=== PATIENT | female | born 1965 | race Caucasian/White ===

== ENCOUNTER 2020-01-30 12:47 | Emergency (ER) | payer BC, SELFPAY ==
--- NOTE | ~2020-01-30 | CT_ITS ---
EXAMINATION: CT brain wo con DATE: 01/30/2020 14:10 INDICATION: Vertigo. Headache. TECHNIQUE: Computed tomography (CT) of the head was performed without intravenous contrast. Sagittal and coronal reconstructions were performed. The mA was adjusted according to patient size. Iterative reconstruction technique was employed. The dose-length product was 605.33 mGy-cm. COMPARISON: None FINDINGS: No acute intracranial hemorrhage, acute infarction or abnormal extra axial fluid collection. Ventricl es are normal and symmetric. No mass/mass effect. Changes of bilateral intraocular lens replacement. The orbits, paranasal sinuses and mastoid air cells are normal. IMPRESSION: 1. Normal brain. No acute intracranial process. Reviewed, dictated and finalized at location A. [facility]
[2020-01-30 12:56] VITALS: BP 142/83; PULSE 88; RESP 18; TEMP 37.2; O2SAT 100
[2020-01-30] MEDS: KETOROLAC 30 MG/ML VIAL (*BKC) IV PUSH (13:39)
[2020-01-30] MEDS: LACTATED RINGERS 1,000 ML 999 ML IV CONT (13:41)
[2020-01-30] MEDS: PROCHLORPERAZINE EDISYLATE 10 MG/2 ML VIAL IV PUSH (13:41)
[2020-01-30 13:47] LABS: Basophils Percent Auto 0.3 % (0.2-1.2); Eosinophils Absolute Auto 0.2 K/mm3 (0-0.3); Eosinophils Percent Auto 2.5 % (0-4.4); Hematocrit 33.7 % (37.0-47.0); Hemoglobin 11.1 g/dL (12.0-15.0); Immature Granulocyte Absolute 0.03 K/mm3 (0.00-0.031); Immature Granulocyte Percent A 0.4 % (0-0.5); Lymphocytes Absolute Auto 3.11 K/mm3 (0.9-3.2); Mean Corpuscular HGB Conc 32.9 g/dl (32-36); Mean Corpuscular Hemoglobin 29.7 pg (26-34); Mean Corpuscular Volume 90.1 fl (80-100); Mean Platelet Volume 10.4 fl (7.4-10.4); Monocytes Absolute Auto 0.6 K/mm3 (0.1-0.6); Monocytes Percent Auto 7.8 % (2.6-8.5); Platelet Count Result 232 k/mm3 (150-375); Red Blood Count 3.74 M/mm3 (4.2-5.4); Red Cell Distribution Width 12.8 % (11.5-14.5)
--- NOTE | 2020-01-30 13:56 | ED.HA ---
HPI - Headache General Chief Complaint: Headache Stated Complaint: MIGRAINE Time Seen by Provider: 01/30/20 13:10 Source: patient Mode of arrival: ambulatory Limitations: no limitations History of Present Illness HPI Narrative: 54-year-old female History of hypertension Presents complaining of a severe migraine headache for over a week Reports the headache is associated with nausea and vertigo but no hearing loss She got steroids and Antivert from her PCP but it has not alleviated her symptoms Also it turns out that the diagnosis of migraine is a new diagnosis first entertained in the office just last week She does not have a fever or neck pain she does not have any other focal neurologic symptoms Related Data Home Medications Medication Instructions Recorded Confirmed amlodipine [Norvasc] 2.5 mg PO DAILY 03/09/19 03/09/19 hydrochlorothiazide 25 mg PO DAILY 03/09/19 03/09/19 losartan 100 mg PO DAILY 03/09/19 03/09/19 meclizine mg 01/30/20 Allergies Allergy/AdvReac Type Severity Reaction Status Date / Time No Known Allergies Allergy Verified 01/30/20 13:00 Review of Systems Constitutional: Constitutional: Denies chills, Denies fatigue, Denies fever(s) and Denies weakness Eyes: Eyes: Denies change in vision and Reports photophobia ENT: Reports vertigo, Reports dizziness and Denies epistaxis Cardiovascular: Cardiovascular: Denies chest pain Respiratory: Respiratory: Denies cough and Denies dyspnea Gastrointestinal: Gastrointestinal: Reports nausea Musculoskeletal: Musculoskeletal: Denies myalgias and Denies arthralgias Neurologic: Reports vertigo, Reports dizziness and Reports headache(s) Endocrine: Endocrine: Denies polydipsia and Denies polyuria Allergic/Immunologic: Allergic/Immunologic: Denies lip swelling and Denies throat swelling PMFSH Social History Social History Gender identity (if verbalized by the patient): Female Exam Const: General: no acute distress and alert Nutritional Appearance: well nourished Orientation/consciousness: patient oriented x3 HENMT: Head: no contusions and no hematomas Ears: TM's normal bilaterally Face and sinus: sinus tenderness Other: Tender temporalis muscles and tender occipital muscles as well Grossly intact hearing acuity Eyes: Pupils: Equal, round and reactive pupils present EOM: EOMs intact bilaterally Other: Sharp discs Neck: Neck: no meningeal signs Other: Supple Resp: Effort & Inspection: normal respiratory effort Auscultation: clear to auscultation bilaterally Cardio: Rate: regular rate Rhythm: regular rhythm Heart sounds: no murmurs Neuro: General: patient oriented x3 and no meningeal signs Speech: normal speech Course Course Emergency Course: oglesby resolved after tx, nothing worrisome on eval Vital Signs Vital signs: Vital Signs Temperature 37.2 C 01/30/20 12:56 Pulse Rate 88 01/30/20 12:56 Respiratory Rate 18 01/30/20 12:56 Blood Pressure 142/83 H 01/30/20 12:56 Pulse Oximetry 100 01/30/20 12:56 Temperature 37.2 C 01/30/20 14:09 Pulse Rate 86 01/30/20 14:44 Respiratory Rate 18 01/30/20 14:44 Blood Pressure 132/76 01/30/20 14:44 Pulse Oximetry 96 01/30/20 14:44 MDM - Headache Lab Data Result diagrams: 01/30/20 13:39 Labs: Lab Results 01/30/20 01/30/20 Range/Units 13:39 13:39 WBC 8.0 (4.5-10.0) K/mm3 RBC 3.74 L (4.2-5.4) M/mm3 Hgb 11.1 L (12.0-15.0) g/dL Hct 33.7 L (37.0-47.0) % MCV 90.1 (80-100) fl MCH 29.7 (26-34) pg MCHC 32.9 (32-36) g/dl RDW 12.8 (11.5-14.5) % Plt Count 232 (150-375) k/mm3 MPV 10.4 (7.4-10.4) fl Immature Gran % (Auto) 0.4 (0-0.5) % Neut % (Auto) 50.0 (45.5-73.1) % Lymph % (Auto) 39.0 (18.3-44.2) % [place] % (Auto) 7.8 (2.6-8.5) % Eos % (Auto) 2.5 (0-4.4) % Baso % (Auto) 0.3 (0.2-1.2) % Lymph # (Auto) 3.11 (0.9-3.2) K/mm3 [place] # (Auto) 0.6 (0.1-0.6) K/mm
[2020-01-30 14:02] LABS: CRP 0.9 mg/dL (<1.0)
[2020-01-30 14:09] VITALS: TEMP 37.2
[2020-01-30 14:21] LABS: Erythrocyte Sedimentation Rate 18 mm/hr (0-20)
[2020-01-30 14:44] VITALS: BP 132/76; PULSE 86; RESP 18; O2SAT 96
[2020-01-30 15:43] VITALS: BP 117/65; PULSE 74; RESP 18; O2SAT 96
== END 2020-01-30 15:44 | disposition home or self-care (01) ==
PROVIDERS: Emergency Provider Emergency Medicine; PCP Family Medicine
DX: R51.9 Headache, unspecified (principal)
CPT/HCPCS: 36415; 70450; 85025; 85652; 86140; 96361; 96374; 96375; 99284; J0780; J1885; J7120

== ENCOUNTER 2021-01-22 16:02 | Outpatient (CLI) | payer BC, SELFPAY ==
[2021-01-22 17:20] LABS: Influenza A QL RT-PCR Negative (Negative); Influenza B QL RT-PCR Negative (Negative); SARS-CoV-2 RNA PCR Negative (Negative)
== END 2021-01-22 16:03 | disposition home or self-care (01) ==
LOC: CHSLAB 16:06
PROVIDERS: PCP Internal Medicine; Visit Provider Nurse Practitioner Family
DX: Z20.822 Contact with and (suspected) exposure to COVID-19 (principal); J06.9 Acute upper respiratory infection, unspecified
CPT/HCPCS: 87502; C9803; U0003; U0005

== ENCOUNTER 2024-12-17 10:14 | Outpatient (CLI) | payer OTHER, SELFPAY ==
[2024-12-17 10:36] LABS: Hematocrit 41.4 % (35.0-49.0); Hemoglobin 13.3 g/dL (12.0-15.0); Mean Corpuscular HGB Conc 32.1 g/dL (32-36); Mean Corpuscular Hemoglobin 30.0 pg (27.0-31.0); Mean Corpuscular Volume 93.5 fL (78.0-102.0); Platelet Count Result 190 K/mm3 (150-420); Red Blood Count 4.43 M/mm3 (4.20-5.40); White Blood Count 5.4 K/mm3 (4.8-10.8)
[2024-12-17 10:42] LABS: Add Urine Microscopic? YES; Glucose Urine UA Negative (Negative); Leukocyte Esterase Ur 3+ (Negative); Nitrate Urine Positive (Negative); Specific Grav Ur 1.015 (1.010-1.020)
[2024-12-17 10:46] LABS: Appearance Urine Cloudy (Clear)
--- OUTSIDE RECORDS SUMMARY | 2024-12-17 10:47 | XMS_ITS | Clinical Summary ---
Author Organization [facility] Address [address] [place] [address] Phone Care Team Providers Care Hr Director Name Role Phone Unavailable Primary Care Provider Unavailabl e Allergies No known active allergies Medications olmesartan (BENICAR) 40 mg Oral tablet Take 40 mg by mouth daily. Active FAMOTIDINE (PEPCID ORAL) Take by mouth Daily LATE. Active aspirin (FRANCOISE) 81 mg Oral Tab Take by mouth. Active hydrochlorothiaz mami 25 mg Oral tablet Take 1 Tab by mouth daily. 30 Tab 2 08/28/2011 Active Active Problems Problem Noted Date Diagnosed Date Fatigue 08/28/2011 Abnormal thyroid blood test 08/28/2011 Snoring 08/28/2011 HTN (hypertension) 08/28/2011 Resolved Problems Problem Noted Date Diagnosed Date Resolved Date Abnormal thyroid blood test 08/28/2011 08/28/2011 Family History Medical History Relation Name Comments Other Father mva Thyroid Disease Mother Other Sister ALLERGIES, SCOL IOSIS Relation Name Status Comments Father Mother Alive Sister Alive Social History Tobacco Use Types Packs/Day Years Used Date Smoking Tobacco: Never Alcohol Use Standard Drinks/Week Comments Yes 0 (1 standard drink = 0.6 oz pur e alcohol) social Comments No Sex and Gender Information Value Date Recorded Sex Assigned at Not on file Legal Sex Female 6:09 AM UNDERLAY STITCHER Gender Identity Not on file Sexual Orientation Not on file Last Filed Vital Signs Vital Sign Reading Time Taken Comments Blood Pressure 160/95 08/28/2011 10:50 AM CDT right arm 120\80 Pulse 78 08/28/2011 10:50 AM CDT Temperature - - Respiratory Rate - - Oxygen Saturation - - Inhaled Oxygen Concentration - - Weight 73.5 kg (162 lb) 08/28/2011 10:5 0 AM CDT Height 171.5 cm (5' 7.5) 08/28/2011 10 :50 AM CDT Body Mass Index 25 08/28/2011 10:50 AM CDT Plan of Treatment Health Maintenance Due Date Last Done Comments DTAP/TDAP/TD VACCINES (1 - Tdap) 1984 HEPATITIS B VACCINES (1 of 3 - 19+ 3-dose series) 07/19 HPV/Cotest (21-29) 1986 CERVICAL CANCER SCREENING 08/15/1995 HPV/Cotest (30-65) 08/15/1995 PAP SMEAR 08/15/1995 BREAST CANCER SCREENING 2005 COLORECTAL SCREENING 2010 Colorectal Cancer Screening 2010 FIT-DNA Q 3 years 2010 FIT/FOBT Q 1 year 2010 Flex Sig/CT Colonography Q 5 years 2010 ZOSTER VACCINE (1 of 2) 08/15/2015 INFLUENZA VACCINE (#1) 2024 12/18/2018 Insurance [facility] BLUE ACCESS/TRUE BLUE PPO
--- OUTSIDE RECORDS SUMMARY | 2024-12-17 10:47 | XMS_ITS | Clinical Summary ---
Author Organization [facility] Address [address] [place] [address] Care Team Providers Care Offshore Diver Name Role Phone Jalen Lincoln MD Primary Care Provider [phone] Allergies No known active allergies Medications losartan (COZAAR) 100 mg tablet TK 1 T PO QD 5 02/25/2018 Active estradiol (ESTRACE) 0.5 mg tablet 01/28/2018 Active hydroCHLOROthiaz mami (HYDRODIURIL) 25 mg tablet 01/27/2018 Active medroxyPROGESTER one (PROVERA) 2.5 mg tablet 01/27/2018 Activ e Active Problems Problem Noted Date Diagnosed Date Breast mass, right 03/04/2018 Abnormal mammogram 04/22/2013 Immunizations Immunization Administration Dates Next Due Influenza, Quadrivalent, Spl it, Preservative Free, Intramuscular 04/30/2016 Surgical History Surgery Date Site/Laterality Comments BREAST BIOPSY 03/19/2018 Right Medical History Medical History Date Comments Hypertension Hypertension Family History Medical History Relation Name Comments Other Father Auto accident; Cause of : Auto accident Breast cancer Father's Sister Lymphoma Maternal Grandfather Other Mother althy; Relation Name Status Comments Father (Age 60) Father's Sister Maternal Grandfather Mother Alive Social History Tobacco Use Types Packs/Day Years Used Date Smoking Tobacco: Never Smokeless Tobacco: Never Alcohol Use Standard Drinks/Week Comments Yes 0 (1 standard drink = 0.6 oz pur e alcohol) Comments Unknown Sex and Gender Information Value Date Recorded Sex Assigned at Not on file Legal Sex Female 2:32 AM PETROPHYSICAL ENGINEER Gender Identity Not on file Sexual Orientation Not on file Obstetrics History Last Filed Vital Signs Vital Sign Reading Time Taken Comments Blood Pressure 137/76 04/30/2016 8:36 AM CDT Pulse 85 04/30/2016 8:36 AM CDT Temperature 36.8 C (98.2 F) 01/23/2016 3:46 PM PETROPHYSICAL ENGINEER Respiratory Rate - - Oxygen Saturation 98% 01/23/2016 3:46 PM PETROPHYSICAL ENGINEER Inhaled Oxygen Concentration - - Weight 70.3 kg (155 lb) 03/04/2018 10:10 AM PETROPHYSICAL ENGINEER Height 170.2 cm (5' 7) 03/04/2018 10:10 AM PETROPHYSICAL ENGINEER Body Mass Index 24.28 03/04/2018 10:10 AM PETROPHYSICAL ENGINEER Plan of Treatment Health Maintenance Due Date Last Done Comments Cervical Cancer Screening 1965 Colon Cancer Screening-Colonoscopy 1965 Depression Screening 1965 Hepatitis C Screening 1965 Hepatitis B Screening 08/15/1983 Regular Well Visit/Exam 18-64 08/15/1983 Influenza Vaccine (#1) 2024 0, 12/18/2018, 11/12/2016, Additional history exists Breast Cancer Screening-Mammogram 06/11/2025 06/11/2024, 04/12/2020 DTaP/Tdap/Td Vaccine (2 - Td or Tdap) 04/22/2029 04/23/2019 Zoster Vaccine Completed 04/16/2018, 02/13/2018 Pneumococcal vaccine <65 Aged Out No longer eligible based on patient's age to complete this topic Procedures Procedure Name Priority Date/Time Associated Diagnosis Comments SCREENING MAMMOGRAM BILATERAL W XOCHITL Schedule Routine, Read Routine (OP Routine) 06/11/2024 8:18 AM CDT Screening mammogram, encounter for from Last 3 Months or Most Recently Relevant to Health Maintenance Results * Screening Mammogram Bilateral W Xochitl (06/11/2024 8:18 AM CDT) Anatomical Region Laterality Modality Breast Bilateral Mammography Narrative 06/14/2024 1:38 PM CDT Mammogram Technique: Bilateral Digital Breast Tomosynthesis, Bilateral C-view 2D Screening mammogram. Views obtained: bilateral craniocaudal and bilateral mediolateral oblique. Computer Aided Detection was performed. Mammogram Findings: The present examination has been compared to prior imaging studies performed at [facility] on 03/04/2018 and 04/12/2020, and at [place], [place] on 02/25/2018. There are scattered areas of fibroglandular density. There is no suspicious abnormality in either breast. Impression: There is no mammographic evidence of malignancy. Annual screening mammography is recommended. OVERALL FINAL ASSESSMENT: BI-RADS CATEGORY 1: Negative. Procedure Note Yoon Solitario MD - 06/14/2024 Mammogram Technique: Bilateral Digital Breast Tomosynthesis, Bilateral C-view 2D Screening mammogram. Views obtained: bilateral craniocaudal and bilateral mediolateral oblique. Computer Aided Detection was performed. Mammogram Findings: The present examination has been compared to prior imaging studies performed at [facility] on 03/04/2018 and 04/12/2020, and at [place], [place] on 02/25/2018. There are scattered areas of fibroglandular density. There is no suspicious abnormality in either breast. Impression: There is no mammographic evidence of malignancy. Annual screening mammography is recommended. OVERALL FINAL ASSESSMENT: BI-RADS CATEGORY 1: Negative. us Self Screening Mammogram IMG MAMMO PROCEDURES Fi nal Result from Last 3 Months or Most Recently Relevant to Health Maintenance Insurance [employer] [facility] HMO [employer] [facility] [place] HMO Care Teams Offshore Diver Relationship Specialty Start Date End Date Jalen Lincoln MD PCP - General 04/12/20
--- OUTSIDE RECORDS SUMMARY | 2024-12-17 10:47 | XMS_ITS | Clinical Summary ---
Author Organization [facility] Address [address] [place] [address] Care Team Providers Care Pot Fireman Name Role Phone Unavailable Primary Care Provider Unavailabl e Social History Tobacco Use Types Packs/Day Years Used Date Smoking Tobacco: Never Assessed Comments Unknown Sex and Gender Information Value Date Recorded Sex Assigned at Not on file Legal Sex Female 12:51 PM DIRECTOR CPG Gender Identity Not on file Sexual Orientation Not on file Plan of Treatment Health Maintenance Due Date Last Done Comments Hepatitis C Virus (HCV) Screening 1965 TdaP Immunization 1965 Hepatitis B Immunization (1 of 3 - 19+ 3-dose series) 1984 Pap Smear 1986 Cervical Cancer Screening (CCS) 08/15/1995 HPV/Cotest 08/15/1995 Cologuard 2010 Colonoscopy 2010 Colorectal Cancer Screening 2010 Immunochemical Fecal Occult Blood 2010 Pneumococcal Immunization (50+ years) (1 of 1 - PCV) 08/15/2015 Influenza Immunization (#1) 2024 11/0 05/2019, 12/18/2018, 11/12/2016, Additional history exists SARS-COV-2 Immunization ( - season) 2024 Respiratory Syncytial Virus (RSV) Immunization (Adult) (1 - 1-dose 75+ series) 2040 Zoster Immunization Completed 04/16/2018, 8 Human Papillomavirus (HPV) Immunization Aged Out No longer eligible based on patient's age to complete this topic Meningococcal Immunization (ACWY) Aged Out No longer eligible based on patient's age to complete this topic Rotavirus Immunization Aged Out No lo nger eligible based on patient's age to complete this topic Insurance [employer] on file
--- OUTSIDE RECORDS SUMMARY | 2024-12-17 10:47 | XMS_ITS | Clinical Summary ---
Author Organization [facility] Address [address] [place] [address] Care Team Providers Care Sponsorship Manager Name Role Phone Dandre Martinez MD Primary Care Provider [phone] Source Comments [facility],non-owned Affiliates and Associated Physician Practices is amultiple site organization consisting of ambulatory clinics and hospital sitesin [place], [place], [place] and [place]. This disclosure is being madepursuant to the Care Everywhere program and may not contain all information available regarding this patient. Last updated 17.[facility] Allergies No known active allergies Medications * Be aware that medications may not be up to date on this document. Alwaysverify current medications with the patient. ferrous sulfate 325 (65 FE) MG tablet Take 1 tablet by mouth once daily 100 tablet 2 12/24/2018 Active hydroCHLOROthia zide (HYDRODIURIL) 25 MG tablet Take 1 tablet by mouth once daily 90 tablet 3 01/13/2019 Active gabapentin (NEURONTIN) 300 MG capsule Take 1 capsule by mouth at bedtime 30 capsule 5 06/10/2019 Active losartan (COZAAR) 100 MG tablet TAKE 1 TABLET DAILY 90 tablet 3 05/22/2020 Active amLODIPine (NORVASC) 5 MG tablet TAKE 1 TABLET DAILY 90 tablet 3 05/22/2020 Active Active Problems Problem Noted Date Diagnosed Date Periodic limb movement disorder (PLMD) 9 Essential hypertension 07/04/2018 LVH (left ventricular hypert rophy) due to hypertensive disease, without heart failure 07/04/2018 Pulmonary hypertension due to left heart disease 07/04/2018 Arthralgia of both feet 05/19/2018 Sleep related bruxism 05/19/2018 Sleep related gastroesophageal reflux disease Secondary hypertension 05/15/2018 Breast mass, right 03/04/2018 Menopause present 11/17/2014 Other intervertebral disc displacement, lumbar r egion 07/18/2014 HNP (herniated nucleus pulposus), lumbar 015 Abnormal thyroid blood test 08/28/2011 Fatigue 08/28/2011 Family History Medical History Relation Name Comments Hypertension Daughter Hypertension Father Relation Name Status Comments Daughter Father Social History Tobacco Use Types Packs/Day Years Used Date Smoking Tobacco: Never Smokeless Tobacco: Never Alcohol Use Standard Drinks/Week Comments No 0 (1 standard drink = 0.6 oz pur e alcohol) Comments No Sex and Gender Information Value Date Recorded Sex Assigned at Not on file Legal Sex Female 5:33 PM HAND SCRAPER Gender Identity Not on file Sexual Orientation Not on file Last Filed Vital Signs Vital Sign Reading Time Taken Comments Blood Pressure 110/72 01/13/2019 2:14 PM HAND SCRAPER Pulse 71 01/13/2019 2:14 PM HAND SCRAPER Temperature 36.6 C (97.8 F) 07/29/2014 12:30 PM CDT Respiratory Rate 16 07/29/2014 1:30 PM CDT Oxygen Saturation 97% 01/13/2019 2:14 PM HAND SCRAPER Inhaled Oxygen Concentration - - Weight 75.8 kg (167 lb) 01/13/2019 2:14 PM HAND SCRAPER Height 170.2 cm (5' 7) 01/13/2019 2:14 PM HAND SCRAPER Body Mass Index 26.16 01/13/2019 2:14 PM HAND SCRAPER Plan of Treatment Health Maintenance Due Date Last Done Comments COLOGUARD (AGES 45-75) - COL ON CA SCREENING 1965 COLON MONITORING 1965 COLONOSCOPY - COLON CA SCREENING 1965 CT COLONOGRAPHY - COLON CA SCREENING 1965 Colorectal Cancer Screening 1965 FIT - COLON CA SCREENING 1965 FLEX SIG - COLON CA SCREENING 1965 HIV SCREENING 1980 HEPATITIS C SCREENING 08/10/1983 DTAP/TDAP/TD VACCINES (1 - Tdap) 1984 HEPATITIS B VACCINE (1 of 3 - 19+ 3-dose series) 1984 PNEUMOCOCCAL VACCINE 50+ (1 of 1 - PCV) 08/15/2015 ZOSTER VACCINE (1 of 2) 08/15/2015 MAMMOGRAM 03/19/2020 03/19/2018 SCREENING FOR DIABETES 05/19/2021 9, 07/18/2014 LIPID TESTING 05/20/2023 05/19/2018 DEPRESSION SCREENING 02/18/2024 COVID-19 VACCINE (1 - 2023-2 5 season) 2024 INFLUENZA VACCINE (#1) 2024 04/30/2016 HIB VACCINE Aged Out No longer eligi ble based on patient's age to complete this topic HPV VACCINE Aged Out No longer eligi ble based on patient's age to complete this topic MENINGOCOCCAL (Group B) VACCINE SHARED DECISION-MAKING Aged Out No longer eligible based on patient's age to complete this topic MENINGOCOCCAL GROUPS A/C/Y/W VACCINE Aged Out No longer eligible b ased on patient's age to complete this topic Procedures Procedure Name Priority Date/Time Associated Diagnosis Comments RENAL FUNCTION PANEL Routine 05/19/2018 9:49 AM CDT Establishing care with new doctor, encounter for Secondary hypertension LIPID PROFILE Routine 05/19/2018 9:49 AM CDT Establishing care with new doctor, encounter for Secondary hypertension from Last 3 Months or Most Recently Relevant to Health Maintenance Results * (ABNORMAL) RENAL FUNCTION PANEL (05/19/2018 9:49 AM CDT) Glucose 114(H) 65 - 99 mg/dL [facility] Comment: Fasting reference interval For someone without known diabetes, a glucose value between 100 and 125 mg/dL is consistent with prediabetes and should be confirmed with a follow-up test. BUN 13 7 - 25 mg/dL [facility] Creatinine 0.92 0.50 - 1.05 mg/dL [facility] Comment: For patients >49 years of age, the reference limit for Creatinine is approximately 13% higher for people identified as -[place] Citizen. eGFR by MDRD 72 > OR = 60 mL/min/1 .73m2 [facility] eGFR by MDRD 83 > OR = 60 mL/min/1 .73m2 [facility] BUN/Creatinine Ratio NOT APPLICABLE 6 - 22 (calc) [facility] Sodium 141 135 - 146 mmol/L [facility] Potassium 3.7 3.5 - 5.3 mmol/L [facility] Chloride 104 98 - 110 mmol/L [facility] CO2 27 20 - 32 mmol/L [facility] Calcium 9.5 8.6 - 10.4 mg/dL [facility] Phosphorus 4.0 2.5 - 4.5 mg/dL [facility] Albumin 4.2 3.6 - 5.1 g/dL [facility] Comment: Test Performed at: [facility] [id number] [place] [address] CULLEN ONEIL DO,MPH Blood BLOOD SPECIMEN / Unknown 05/19/2018 9:49 AM CDT 05/19/2018 9:50 AM CDT Nico Millan MD LAB - CHEMISTRY ORDERAB LES Final Result [facility] [id number] [place] [address] * (ABNORMAL) LIPID PROFILE (05/19/2018 9:49 AM CDT) Cholesterol 202(H) <200 mg/dL [facility] HDL Cholesterol 71 >50 mg/dL [facility] Triglycerides 108 <150 mg/dL [facility] LDL Calculated 109(H) mg/dL (calc) [facility] Comment: Reference range: <100 Desirable range <100 mg/dL for primary prevention; <70 mg/dL for patients with CHD or diabetic patients with > or = 2 CHD risk factors. LDL-C is now calculated using the Kush-Pedro calculation, which is a validated novel method providing better accuracy than the Friedewald equation in the estimation of LDL-C. Kush SS et al. TACOS. 2013;310(19): 9149-0904 (http://education.[employer]/faq/SCH350) CHOL/HDLC RATIO 2.8 <5.0 (calc) [facility] Non HDL Cholesterol 131(H) <130 mg/dL (calc) [facility] Comment: For patients with diabetes plus 1 major ASCVD risk factor, treating to a non-HDL-C goal of <100 mg/dL (LDL-C of <70 mg/dL) is considered a therapeutic option. Test Performed at: [facility] [id number] [place] [address] CULLEN ONEIL DO,MPH Blood BLOOD SPECIMEN / Unknown 05/19/2018 9:49 AM CDT 05/19/2018 9:50 AM CDT Nico Millan MD LAB - CHEMISTRY ORDERAB LES Final Result [facility] [id number] [place] [address] from Last 3 Months or Most Recently Relevant to Health Maintenance Insurance ANTHEM ANTHEM Care Teams Sponsorship Manager Relationship Specialty Start Date End Date Dandre Martinez MD [address] [place] [address] PCP - General 05/15/18
[2024-12-17 11:00] LABS: Alanine Aminotransferase 16 U/L (6-35); Albumin Level 4.8 g/dL (3.5-5.1); Alkaline Phosphatase 94 U/L (38-126); Anion Gap 13 mmol/L (4-12); Aspartate Amino Transferase 33 U/L (14-36); Bilirubin,Total 0.8 mg/dL (0.2-1.3); Blood Urea Nitrogen 12 mg/dL (7-17); Calcium 9.6 mg/dL (8.4-10.2); Carbon Dioxide 28 mmol/L (22-30); Chloride 101 mmol/L (98-107); Cholesterol 257 mg/dL (0-200); Estimated Glomerular Filt Rate > 60; Glucose 101 mg/dL (65-110); HDL Direct 106 mg/dL; Osmolality Calculated 293 mOsm/kg (285-295); Potassium 3.7 mmol/L (3.4-5.0); Sodium 142 mmol/L (137-145); Total Protein 7.9 g/dL (6.3-8.2); Triglycerides 128 mg/dL (<150)
[2024-12-17 11:29] LABS: Thyroid Stimulating Hormone 3.800 uIU/mL (0.465-4.680)
[2024-12-24 08:09] LABS: 1,25-Dihydroxy, Vitamin D-2 29 pg/mL (.); 1,25-Dihydroxy, Vitamin D-3 61 pg/mL (.); Total 1,25-Dihydroxy,Vitamin D 90 pg/mL (.)
== END 2024-12-17 10:15 | disposition home or self-care (01) ==
LOC: CHSLAB 10:17
PROVIDERS: PCP Internal Medicine; Visit Provider Internal Medicine
DX: N39.0 Urinary tract infection, site not specified (principal)
CPT/HCPCS: 36415; 80053; 80061; 81001; 82306; 82652; 84443; 85027; 87077; 87086; 87186